=== PATIENT | male | born 1950 | race Caucasian/White ===

== ENCOUNTER → 2016-05-03 | Outpatient (CLI) | payer OTHER ==
[~2016-05-03] MED LIST: DIOVAN320 MG PO; LIPITOR10 MG PO; NORVASC5 MG PO; VITAMIN D PO
== END | disposition disaster alternative care site (69) ==
LOC: GCAR 12:35
DX: H49.22 Sixth [abducent] nerve palsy, left eye (principal); R20.9 Unspecified disturbances of skin sensation; I65.23 Occlusion and stenosis of bilateral carotid arteries